=== PATIENT | male | born 1940 | race Caucasian/White ===

== ENCOUNTER 2019-05-30 16:40 | Outpatient (CLI) | payer MEDICARE, OTHER ==
--- NOTE | 2019-06-02 16:57 | XRAY Report ---
Reason: cough Procedure Date: 05/30/2019 Accession Number: [id number] / [id number] Procedure: XR - Chest 2 View X-Ray CPT Code: 59110 FULL RESULT: EXAM: CHEST RADIOGRAPHY EXAM DATE: 05/30/2019 05:12 PM. CLINICAL HISTORY: Cough. COMPARISON: None. TECHNIQUE: 2 views. FINDINGS: Lungs/Pleura: There is reticular opacity within the medial lung bases which could represent atelectasis. No convincing evidence of lobar infiltrate. No large pleural effusion. There is no evidence of pneumothorax. Mediastinum: Heart size is within normal limits. Patient has undergone median sternotomy. Other: None. IMPRESSION: 1. Lung volumes are somewhat low. Heart size is within normal limits. 2. There is reticular opacity within the lung bases. This could represent atelectasis. 3. No definite evidence of focal infiltrate. 4. There is no pneumothorax. RADIA
== END 2019-05-30 16:41 | disposition home or self-care (01) ==
LOC: DI 16:40
PROVIDERS: ATTEND Internal Medicine
DX: R91.8 Other nonspecific abnormal finding of lung field (principal)
CPT/HCPCS: 71046

== ENCOUNTER 2019-08-06 17:20 | Emergency (ER) | payer MEDICARE, OTHER ==
--- NOTE | 2019-08-06 17:36 | ED Physician Documentation ---
PD HPI ABD PAIN - Stated complaint Stated Complaint: MALE - Chief complaint Chief Complaint: Abd Pain - History obtained from History obtained from: Family (78-year-old gentleman who lives in assisted living for dementia presents accompanied by his who is the historian. He is generally incontinence, but caregivers noted that there was dry diapers all day today. He has had poor appetite for a couple of days. On arrival now he is actually incontinent of urine and his pants are wet. There is an insignificant amount of urine in his bladder on bedside bladder scan.) Review of Systems Unable to obtain: Dementia PD PAST MEDICAL HISTORY - Present Medications Home Medications: Ambulatory Orders Medication Instructions Recorded Confirmed Acetaminophen 325 mg PO Q6HR PRN 08/06/19 08/06/19 Aspirin 325 mg ORAL DAILY 08/06/19 08/06/19 Atorvastatin Calcium 40 mg PO DAILY PM 08/06/19 08/06/19 Docusate Sodium 100 mg ORAL DAILY PRN 08/06/19 08/06/19 Losartan Potassium 25 mg PO DAILY 08/06/19 08/06/19 Metformin HCl 1,000 mg ORAL BID 08/06/19 08/06/19 Metoprolol Succinate 50 mg PO DAILY 08/06/19 08/06/19 Sertraline HCl 50 mg PO DAILY 08/06/19 08/06/19 Terbinafine HCl [Terbinafine] 1 applic TOP BID 08/06/19 08/06/19 - Allergies Allergies/Adverse Reactions: Allergies Allergy/AdvReac Type Severity Reaction Status Date / Time amlodipine Allergy Unknown Verified 08/06/19 17:51 lisinopril Allergy Unknown Verified 08/06/19 17:22 PD ED PE NORMAL - Vitals Vital signs reviewed: Yes - General General: Other (Alert, says his name, otherwise nonverbal) - HEENT HEENT: PERRL, EOMI - Abdomen Abdomen: Normal bowel sounds, Soft, Non tender - Derm Derm: Normal color, Warm and dry - Extremities Extremities: No edema, No calf tenderness / cord Results - Vitals Vitals: Vital Signs - 24 hr 08/06/19 08/06/19 08/06/19 17:22 17:40 18:25 Temperature 36.7 C 36.2 C L 36.4 C L Heart Rate 67 65 60 Respiratory 16 18 18 Rate Blood Pressure 182/84 H 181/78 H 173/83 H O2 Saturation 95 96 99 Oxygen O2 Source Room air - Labs Labs: Laboratory Tests 08/06/19 08/06/19 18:10 18:40 Sodium 141 Potassium 4.1 Chloride 104 Carbon Dioxide 26 Anion Gap 11.0 BUN 27 H Creatinine 1.4 H Estimated GFR (MDRD) 49 L Glucose 153 H Calcium 9.1 Urine Color YELLOW Urine Clarity CLEAR Urine pH 6.0 Ur Specific [place] 1.020 Urine Protein TRACE Urine Glucose (UA) NEGATIVE Urine Ketones NEGATIVE Urine Occult Blood NEGATIVE Urine Nitrite NEGATIVE Urine Bilirubin NEGATIVE Urine Urobilinogen 1 (NORMAL) Ur Leukocyte Esterase NEGATIVE Ur Microscopic Review NOT INDICATED Urine Culture Comments NOT INDICATED PD MEDICAL DECISION MAKING - ED course ED course: 78-year-old gentleman has had a little poor intake for the last couple of days and now today did not produce any urine for a while but then was incontinent on the way here. There is no evidence of urinary retention and his urine is normal. Mild prerenal azotemia on labs of unclear chronicity, but he was drinking water well here. Departure - Departure Disposition: 01 Home, Self Care Clinical Impression: Dehydration Condition: Good Record reviewed to determine appropriate education?: Yes Instructions: ED Dehydration Comments: Mr. Truong was little dehydrated today, he needs to drink plenty of fluids. Please encourage him hourly during the day to drink at least a glass of water. He should follow-up with his doctor in about a week for recheck.
[2019-08-06 18:27] LABS: CALCIUM 9.1 mg/dL (8.5-10.3); CREATININE 1.4 mg/dL (0.6-1.2)
[2019-08-06 18:50] LABS: BILIRUBIN,URINE NEGATIVE (NEGATIVE); GLUCOSE, URINE (UA) NEGATIVE (NEGATIVE); KETONES,URINE (UA) NEGATIVE (NEGATIVE); LEUKOCYTE ESTERASE, URINE NEGATIVE (NEGATIVE); NITRITE,URINE NEGATIVE (NEGATIVE); OCCULT BLOOD,URINE NEGATIVE (NEGATIVE); PROTEIN,URINE TRACE mg/dL (NEGATIVE); UROBILINOGEN,URINE 1 (NORMAL) E.U./dL (NORMAL)
[2019-08-06 18:51] LABS: CLARITY,URINE CLEAR (CLEAR)
[2019-08-06 20:07] VITALS: BP 196/83
== END 2019-08-06 20:19 | disposition home or self-care (01) ==
LOC: ED 17:20
DX: E86.0 Dehydration (principal); R79.89 Other specified abnormal findings of blood chemistry; F03.90 Unspecified dementia, unspecified severity, without behavioral disturbance, psychotic disturbance, mood disturbance, and anxiety; Z79.82 Long term (current) use of aspirin
CPT/HCPCS: 51701; 80048; 81001; 81003; 87086; 99281; 99283

== ENCOUNTER 2020-12-08 | Outpatient (CLI) | payer MEDICARE, OTHER, MEDICAID | END 2020-12-08 04:50 | disposition critical access hospital (66) | CPT/HCPCS: A0425; A0429 ==

== ENCOUNTER 2020-12-08 05:07 | Emergency (ER) | payer MEDICARE, OTHER, MEDICAID ==
--- NOTE | 2020-12-08 05:17 | ED Physician Documentation ---
History of Present Illness - Stated complaint Stated Complaint: GLF - Chief complaint Chief Complaint: Trauma Hd/Nk - History obtained from History obtained from: EMS - Additonal information Additional information: Patient is brought to the emergency department by EMS after being found at the [facility] at [facility] where he lives to rolled out of bed. Staff found the patient on the floor and they asked him what happened, he stated that he had rolled out of bed. The patient was put back into bed without incident, but was found to have a couple of bruises on his face, so staff called patient's , who preferred the patient be transported for evaluation. Medics state the patient has not offered much information in route, but has not seemed to be uncomfortable. The patient is minimally verbal and offers little information. This is apparently his baseline and he is in the memory care unit. Review of Systems Unable to obtain: Dementia PD PAST MEDICAL HISTORY - Past Medical History Cardiovascular: Hypertension, High cholesterol, Coronary artery disease, Peripheral Vascular Disease, [place] Neuro: Dementia Endocrine/Autoimmune: Type 2 diabetes : Renal insuffiency - Past Surgical History Past Surgical History: Yes Cardiovascular: CABG, Coronary stent, Cardiac catheterization - Present Medications Home Medications: Ambulatory Orders Medication Instructions Recorded Confirmed Acetaminophen 325 mg PO Q6HR PRN 08/06/19 12/08/20 Aspirin 325 mg ORAL DAILY 08/06/19 12/08/20 Atorvastatin Calcium 40 mg PO DAILY PM 08/06/19 12/08/20 Docusate Sodium 100 mg ORAL DAILY PRN 08/06/19 12/08/20 Losartan Potassium 25 mg PO DAILY 08/06/19 12/08/20 Metformin HCl 1,000 mg ORAL BID 08/06/19 12/08/20 Metoprolol Succinate 50 mg PO DAILY 08/06/19 12/08/20 Sertraline HCl 50 mg PO DAILY 08/06/19 08/06/19 - Allergies Allergies/Adverse Reactions: Allergies Allergy/AdvReac Type Severity Reaction Status Date / Time amlodipine Allergy Unknown Verified 12/08/20 05:25 lisinopril Allergy Unknown Verified 12/08/20 05:25 - Social History Does the pt smoke?: No Smoking Status: Never smoker Does the pt drink ETOH?: No Does the pt have substance abuse?: No - Immunizations Immunizations are current?: Yes - POLST Patient has POLST: No PD ED PE NORMAL - Vitals Vital signs reviewed: Yes - General General: No acute distress, Well developed/nourished, Other (Patient is alert and in no distress. He does not offer any information) - HEENT HEENT: PERRL, EOMI, Moist mucous membranes, Other (2 cm bruise over bridge of patient's nose without deformity of the nose itself. 3 cm diameter contusion of the lateral superior orbital rim on the right. 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 Face symmetrical. Patient moves all 4 extremities.) - Psych Psych: Normal mood, Normal affect Results - Vitals Vitals: Oxygen O2 Source Room air PD MEDICAL DECISION MAKING - ED course Complexity details: reviewed results, re-evaluated patient, considered differential ED course: The patient was overall very well-appearing, and did not have any bony tenderness anywhere on exam. He did have some fairly mild facial trauma, but given that he is elderly and unable to offer information and answer questions, I felt that he should be evaluated CTs of the head and C-spine. These were performed and found to be negative. Pt was stable for d/c. Usual indications for return given. Departure - Departure Disposition: 01 Home, Self Care Clinical Impression: Fall from ground level Contusion Qualifiers: Encounter type: initial encounter Contusion area: head Contusion of head detai l: nose Qualified Code(s): S00.33XA - Contusion of nose, initial encounter Condition: Stable Instructions: ED Head Injury Closed Comments: The CT scans of the head and neck look good. There was no evidence of any other injury or medical condition on exam. Discharge Date/Time: 12/08/20 06:50
--- OUTSIDE RECORDS SUMMARY | 2020-12-08 05:29 | EXTERNAL MEDICAL SUMMARY RPT | Continuity of Care Document ---
:1940 Demographics Phone Unavailable Preferred Language Unknown Marital Status Unknown Anabaptist Affiliation Unknown Race Unknown Ethnic Group Unknown Author Organization [facility] Address [address] [place] [address] Phone Social History date description facility [id number]
[2020-12-08 06:20] VITALS: BP 188/93
--- NOTE | 2020-12-08 08:09 | CT Report ---
PROCEDURE: HEAD WO INDICATIONS: fall/blunt head trauma TECHNIQUE: Noncontrast 4.5 mm thick angled axial sections acquired from the foramen magnum to the vertex. For r adiation dose reduction, the following was used: automated exposure control, adjustment of mA and/or kV according to patient size. COMPARISON: Correlation is made with the accompanying cervical spine CT, 12/08/2020. FINDINGS: Image quality: Excellent. CSF spaces: Basal cisterns are patent. No extra-axial fluid collections. Ventricles are symmetric, yet abnormally prominent. Brain: Mild loss of encephalomalacia can be seen involving the right frontal lobe superiorly and ant eriorly. No midline shift. No intracranial masses or hemorrhage. Pierce-white matter interface is nor mal. Skull and face: There is a mild right forehead scalp hematoma seen. No underlying calvarial fracture can be seen. Calvarium and visualized facial bones are intact, without suspicious lesions. Sinuses: Visualized sinuses and mastoids are clear. IMPRESSION: No intracranial hemorrhage is seen. No significant intracranial abnormality is seen. Abnormally prominent lateral ventricles compared to the degree of sulcal atrophy. Please consider nor mal pressure hydrocephalus. There is focal volume loss and encephalomalacia seen involving the right frontal lobe. 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 Differential diagnosis would also include an underlying mass with edema, ye t this is considered to be less likely. Mild right forehead scalp hematoma, without an underlying calvarial fracture. Note: This case (including difference between this final report and the preliminary report) discussed by telephone with Dr. Mckinney at 7:05 AM [place] time on 12/08/2020. Reviewed by: Maximilian Lee MD on 12/08/2020 7:08 AM VLADIMIR Approved by: Maximilian Lee MD on 12/08/2020 7:08 AM [place] Station ID: [id number]
--- NOTE | 2020-12-08 08:11 | CT Report ---
PROCEDURE: CERVICAL SPINE WO INDICATIONS: fall/blunt head trauma TECHNIQUE: Noncontrast 3 mm thick sections acquired from the skull base to the T4 level. Sagittal and coronal r eformats were then constructed. For radiation dose reduction, the following was used: automated exp osure control, adjustment of mA and/or kV according to patient size. COMPARISON: Correlation is made with the accompanying head CT, 12/08/2020. FINDINGS: Image quality: Motion artifact is noted. Bones: No fractures or dislocations. Visualized superior ribs are intact. Degenerative changes are seen, with at least moderate disc space narrowing at C3-C4, C4-C5, C5-C6, an d C7-T1. Endplate irregularity and sclerosis are seen, which are overall worst at C3-C4 and C4-C5. Sternotomy changes are noted. Soft tissues: Prevertebral soft tissues are normal in thickness. No paravertebral hematomas. No ap ical pneumothoraces. IMPRESSION: Limited study demonstrating no acute fracture. At least moderate underlying cervical spine degenerative change can be seen. Note: No significant discrepancy from the preliminary report. Reviewed by: Maximilian Lee MD on 12/08/2020 7:10 AM VLADIMIR Approved by: Maximilian Lee MD on 12/08/2020 7:10 AM VLADIMIR Station ID: [id number]
== END 2020-12-08 06:50 | disposition home or self-care (01) ==
LOC: EDUNIT# → ED 05:07
DX: S00.33XA Contusion of nose, initial encounter (principal); S00.11XA Contusion of right eyelid and periocular area, initial encounter; W06.XXXA Fall from bed, initial encounter; Y92.122 Bedroom in nursing home as the place of occurrence of the external cause; F03.90 Unspecified dementia, unspecified severity, without behavioral disturbance, psychotic disturbance, mood disturbance, and anxiety; M47.812 Spondylosis without myelopathy or radiculopathy, cervical region; I10 Essential (primary) hypertension; E11.51 Type 2 diabetes mellitus with diabetic peripheral angiopathy without gangrene; Z79.84 Long term (current) use of oral hypoglycemic drugs; Z79.82 Long term (current) use of aspirin
CPT/HCPCS: 99281; 99284

== ENCOUNTER 2021-03-01 22:07 | Outpatient (CLI) | payer MEDICARE, OTHER, MEDICAID | END 2021-03-01 22:08 | disposition critical access hospital (66) | LOC: EMS 22:07 | DX: R63.8 Other symptoms and signs concerning food and fluid intake (principal); R53.1 Weakness | CPT/HCPCS: A0425; A0429 ==

== ENCOUNTER 2021-03-01 22:24 | Emergency (ER) | payer MEDICARE, OTHER, MEDICAID ==
--- NOTE | 2021-03-01 22:55 | ED Physician Documentation ---
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 This has started to improve but the patient has now refused oral. He is not taking fluids or food or his medication. He is brought to the emergency department this evening by ambulance and he is accompanied tonight by his . She is not ready for terminal care and she indicates that her son is also resistant to this. He is currently a full code. The patient has advanced dementia and has been living in a memory care unit for about 7 years. She is concerned that he is dehydrated and she would like us to hydrate him. I did discuss with the patient's and exit strategy and she is indicated to me that she may never be ready for this and that she does not have the support of her son to allow natural progression. Review of Systems Unable to obtain: Dementia ( provides as much as she can) Constitutional: denies: Fever Ears: reports: Ear pain Throat: reports: Sore throat (wondering about this) Cardiac: denies: Chest pain / pressure, Palpitations Respiratory: denies: Dyspnea, Cough GI: denies: Vomiting, Diarrhea Skin: reports: Rash (to right ear) Musculoskeletal: denies: Neck pain Neurologic: reports: Generalized weakness. denies: Focal weakness, Numbness PD PAST MEDICAL HISTORY - Past Medical History Cardiovascular: Hypertension, High cholesterol, Coronary artery disease, Peripheral Vascular Disease, [place] Neuro: Dementia Endocrine/Autoimmune: Type 2 diabetes : Renal insuffiency - Past Surgical History Past Surgical History: Yes Cardiovascular: CABG, Coronary stent, Cardiac catheterization - Present Medications Home Medications: Ambulatory Orders Medication Instructions Recorded Confirmed Acetaminophen 325 mg PO Q6HR PRN 08/06/19 03/02/21 Aspirin 325 mg ORAL DAILY 08/06/19 03/02/21 Atorvastatin Calcium 40 mg PO DAILY PM 08/06/19 03/02/21 Docusate Sodium 100 mg ORAL DAILY PRN 08/06/19 03/02/21 Losartan Potassium 25 mg PO DAILY 08/06/19 03/02/21 Metformin HCl 1,000 mg ORAL BID 08/06/19 03/02/21 Metoprolol Succinate 50 mg PO DAILY 08/06/19 03/02/21 Polyethylene Glycol 4500 17 gm PO DAILY 03/02/21 03/02/21 - Allergies Allergies/Adverse Reactions: Allergies Allergy/AdvReac Type Severity Reaction Status Date / Time amlodipine Allergy Unknown Verified 03/01/21 22:41 lisinopril Allergy Unknown Verified 03/01/21 22:41 - Social History Does the pt smoke?: No Smoking Status: Never smoker Does the pt drink ETOH?: No Does the pt have substance abuse?: No - Immunizations Immunizations are current?: Yes - POLST Patient has POLST: No PD ED PE NORMAL - Vitals Vital signs reviewed: Yes (Hypertensive) - General General: No acute distress, Well developed/nourished, Other (The patient is mute and has a vacant stare. He does respond to his name with eye contact.) - HEENT HEENT: Atraumatic, PERRL, EOMI, Other (The right ear is erythematous swollen and draining externally. The indicates this is a marked improvement from several days ago. The pharynx is with extremely dry mucous membranes. The patient was resistant to examination.) - Neck Neck: Supple, no meningeal sign, No bony TTP - Cardiac Cardiac: RRR, No murmur - Respiratory Respiratory: No respiratory distress, Clear bilaterally - Abdomen Abdomen: Normal bowel sounds, Soft, Non tender, Non distended, No organomegaly - Back Back: No CVA TTP, No spinal TTP - Derm Derm: Normal color, Warm and dry, No rash - Extremities Extremities: No deformity, No edema - Neuro Neuro: No motor deficit, No sensory deficit, Other (Mute with a vacant stare responds only to his name) Eye Opening: Spontaneous Motor: Obeys Commands Verbal: Incomprehensible GCS Score: 12 - Psych Psych: Normal mood, Normal affect Results - Vitals Vitals: Vital Signs - 24 hr 03/01/21 03/01/21 03/01/21 22:25 22:42 22:49 Temperature 37.0 C 36.8 C Heart Rate 82 83 82 Respiratory 17 23 22 Rate Blood Pressure 140/89 H 140/89 H 140/89 H O2 Saturation 96 95 93 03/01/21 03/01/21 03/02/21 23:25 23:55 00:18 Temperature 36.2 C L Heart Rate 77 70 Respiratory 24 22 Rate Blood Pressure 134/91 H 150/81 H O2 Saturation 99 03/02/21 03/02/21 03/02/21 01:04 02:30 03:00 Temperature 36.5 C Heart Rate 71 66 64 Respiratory 23 16 24 Rate Blood Pressure 152/85 H 134/88 H 170/90 H O2 Saturation 98 97 96 03/02/21 03:05 Temperature Heart Rate 74 Respiratory 16 Rate Blood Pressure 125/74 O2 Saturation 98 Oxygen O2 Source Room air - Labs Labs: Laboratory Tests 03/01/21 03/01/21 03/01/21 23:10 23:10 23:26 WBC 8.8 RBC 3.99 L Hgb 12.5 L Hct 38.1 L MCV 95.5 H MCH 31.3 H MCHC 32.8 RDW 13.7 Plt Count 231 MPV 9.0 Neut # (Auto) 6.4 Lymph # (Auto) 1.5 [place] # (Auto) 0.8 Eos # (Auto) 0.1 Baso # (Auto) 0.1 Absolute Nucleated RBC 0.00 Nucleated RBC % 0.0 Sodium 135 Potassium 4.8 Chloride 95 L Carbon Dioxide 27 Anion Gap 13.0 BUN 36 H Creatinine 1.7 H Estimated GFR (MDRD) 39 L Glucose 120 H Lactic Acid 1.2 Calcium 9.3 Total Bilirubin 1.3 H AST 17 ALT 13 Alkaline Phosphatase 71 Total Protein 7.8 Albumin 4.1 Globulin 3.7 Albumin/Globulin Ratio 1.1 Lipase 20 L Urine Color Urine Clarity Urine pH Ur Specific [place] Urine Protein Urine Glucose (UA) Urine Ketones Urine Occult Blood Urine Nitrite Urine Bilirubin Urine Urobilinogen Ur Leukocyte Esterase Urine RBC Urine WBC Ur Squamous Epith Cells Urine Bacteria Urine Casts Ur Microscopic Review Urine Culture Comments 03/02/21 00:00 WBC RBC Hgb Hct MCV MCH MCHC RDW Plt Count MPV Neut # (Auto) Lymph # (Auto) [place] # (Auto) Eos # (Auto) Baso # (Auto) Absolute Nucleated RBC Nucleated RBC % Sodium Potassium Chloride Carbon Dioxide Anion Gap BUN Creatinine Estimated GFR (MDRD) Glucose Lactic Acid Calcium Total Bilirubin AST ALT Alkaline Phosphatase Total Protein Albumin Globulin Albumin/Globulin Ratio Lipase Urine Color YELLOW Urine Clarity CLEAR Urine pH 5.5 Ur Specific [place] 1.025 Urine Protein 100 H Urine Glucose (UA) NEGATIVE Urine Ketones TRACE Urine Occult Blood NEGATIVE Urine Nitrite NEGATIVE Urine Bilirubin NEGATIVE Urine Urobilinogen 1 (NORMAL) Ur Leukocyte Esterase NEGATIVE Urine RBC None Seen Urine WBC 0-3 Ur Squamous Epith Cells RARE Squamous Urine Bacteria Rare Urine Casts 0-2 Hyaline Casts Ur Microscopic Review INDICATED Urine Culture Comments NOT INDICATED Procedures - IVC sono (time) 1050 Bedside IVC sono: IVC measures (cm) (0.66), Profound dehydration (est 3 liter deficit) PD MEDICAL DECISION MAKING - ED course Complexity details: reviewed old records, reviewed results, re-evaluated patient, considered differential, d/w family ED course: 80-year-old male with advanced mentioned has stopped eating and drinking and he is profoundly dehydrated. I discussed with the the exit strategy and she is not prepared for exit. She is requesting the provide fluids and antibiotic. I interrogated the patient's inferior vena cava and found to be profoundly dehydrated and he is administered intravenous saline and a gram of Rocephin IV. He appears more comfortable and I have discussed with the patient's reasons to return to the emergency department if he is unable to hydrate orally. I have also given indicated to the patient to consider this patient's exit strategy has his unwillingness to drink or take medications now may be his indication that he is ready. Departure - Departure Disposition: 01 Home, Self Care Clinical Impression: Dehydration, Cellulitis of right external ear Instructions: ED Infec Skin Cellulitis, ED Dehydration Follow-Up: Rahul Hatch MD [Physician No Access] - Comments: Continue the current medications. K will not need to take is antibiotic until tomorrow evening. If he continues to have issue with not drinking fluids return to the emergency department for hydration. Discharge Date/Time: 03/02/21 03:17
[2021-03-01] MEDS ORDERED: SODIUM CHLORIDE 0.9% 1,000 ML IV STA (22:59)
[2021-03-01] MEDS ORDERED: cefTRIAXone 1 GM in SODIUM CHLORIDE 0.9% MINIBAG 100 ML IV STA (22:59)
[2021-03-01] MEDS ORDERED: cefTRIAXone 1 GM VIAL ONE (23:18)
[2021-03-01 23:35] LABS: BASOPHILS # (AUTO) 0.1 10^3/uL (0.0-0.1); BASOPHILS % (AUTO) 0.6 %; EOSINOPHILS # (AUTO) 0.1 10^3/uL (0.0-0.7); EOSINOPHILS % (AUTO) 0.7 %; HCT - HEMATOCRIT 38.1 % (42.0-52.0); HGB - HEMOGLOBIN 12.5 g/dL (14.0-18.0); LYMPHOCYTES # (AUTO) 1.5 10^3/uL (1.5-3.5); LYMPHOCYTES % (AUTO) 16.8 %; MEAN CORPUSCULAR HEMOGLOBIN 31.3 pg (27.0-31.0); MEAN CORPUSCULAR HGB CONC 32.8 g/dL (32.0-36.0); MEAN CORPUSCULAR VOLUME 95.5 fL (80.0-94.0); MONOCYTES # (AUTO) 0.8 10^3/uL (0.0-1.0); MONOCYTES % (AUTO) 9.2 %; NEUTROPHILS # (AUTO) 6.4 10^3/uL (1.5-6.6); NEUTROPHILS % (AUTO) 72.5 %; PLT - PLATELET COUNT 231 10^3/uL (130-450); RED BLOOD COUNT 3.99 10^6/uL (4.70-6.10); RED CELL DISTRIBUTION WIDTH 13.7 % (12.0-15.0); WHITE BLOOD COUNT 8.8 x10^3/uL (4.8-10.8)
[2021-03-01 23:45] LABS: ALBUMIN 4.1 g/dL (3.2-5.5); ALBUMIN/GLOBULIN RATIO 1.1 (1.0-2.2); BILIRUBIN,TOTAL 1.3 mg/dL (0.2-1.0); CALCIUM 9.3 mg/dL (8.5-10.3); CREATININE 1.7 mg/dL (0.6-1.2); POTASSIUM 4.8 mmol/L (3.5-5.0); TOTAL PROTEIN 7.8 g/dL (6.7-8.2)
[2021-03-02 00:34] LABS: BILIRUBIN,URINE NEGATIVE (NEGATIVE); CLARITY,URINE CLEAR (CLEAR); GLUCOSE, URINE (UA) NEGATIVE (NEGATIVE); KETONES,URINE (UA) TRACE mg/dL (NEGATIVE); LEUKOCYTE ESTERASE, URINE NEGATIVE (NEGATIVE); NITRITE,URINE NEGATIVE (NEGATIVE); OCCULT BLOOD,URINE NEGATIVE (NEGATIVE); PH,URINE 5.5 PH (5.0-7.5); PROTEIN,URINE 100 mg/dL (NEGATIVE); UROBILINOGEN,URINE 1 (NORMAL) E.U./dL (NORMAL)
[2021-03-02 00:41] LABS: BACTERIA,URINE Rare /HPF (None Seen); CASTS, URINE 0-2 Hyaline Casts /LPF; RBC,URINE None Seen /HPF (0-5); SQUAMOUS EPITHELIAL CELL,UR RARE Squamous (<= Few); WBC,URINE 0-3 /HPF (0-3)
[2021-03-02] MEDS ORDERED: SODIUM CHLORIDE 0.9% 1,000 ML IV STA (00:54)
[2021-03-02 03:06] VITALS: BP 125/74
== END 2021-03-02 03:17 | disposition home or self-care (01) ==
LOC: EDUNIT# → SUPCPDRO 22:24 → ED 22:24
DX: E86.0 Dehydration (principal); H60.11 Cellulitis of right external ear; F03.90 Unspecified dementia, unspecified severity, without behavioral disturbance, psychotic disturbance, mood disturbance, and anxiety; I10 Essential (primary) hypertension; E11.51 Type 2 diabetes mellitus with diabetic peripheral angiopathy without gangrene; Z79.84 Long term (current) use of oral hypoglycemic drugs; Z79.82 Long term (current) use of aspirin
CPT/HCPCS: 36415; 51701; 80053; 81001; 81003; 83605; 83690; 85025; 87086; 99283

== ENCOUNTER 2021-03-02 03:18 | Outpatient (CLI) | payer MEDICARE, OTHER, MEDICAID | END 2021-03-02 03:19 | disposition home or self-care (01) | LOC: EMS 03:18 | PROVIDERS: ATTEND Emergency Medicine | DX: R41.0 Disorientation, unspecified (principal); R53.83 Other fatigue | CPT/HCPCS: A0425; A0428 ==